=== PATIENT | female | born 1965 | race Caucasian/White ===

== ENCOUNTER 2017-07-20 21:00 | Emergency (ER) | payer OTHER ==
[2017-07-20] MEDS ORDERED: 0.9 % SODIUM CHLORIDE 1,000 ML IV ONE (21:14)
[2017-07-20] MEDS ORDERED: ONDANSETRON HCL/PF 4 MG/ 2ML VIAL IVP ONE ×2 (21:14→23:20)
[2017-07-20] MEDS ORDERED: KETOROLAC TROMETHAMINE 30 MG/1ML VIAL ONE (21:22)
[2017-07-20] MEDS ORDERED: KETOROLAC TROMETHAMINE 30 MG/1ML VIAL IVP ONE (21:22)
[2017-07-20 21:28] LABS: BASOPHILS % 0.3 (0.0-1.5); EOSINOPHILS % 2.5 % (0.0-6.8); MEAN CORPUSCULAR HEMOGLOBIN 29.5 pg (28.0-34.0); MEAN CORPUSCULAR VOLUME 85.1 fl (80.0-100.0); MONOCYTES % 3.1 % (0.0-11.0); NEUTROPHILS # 10.2 # k/uL (1.4-7.7)
[2017-07-20 21:38] LABS: eGFR (African) > 60; eGFR (Non-African) > 60
[2017-07-20] MEDS ORDERED: fentaNYL CITRATE/PF 100 MCG/ 2ML AMP ONE (22:32)
[2017-07-20] MEDS ORDERED: fentaNYL CITRATE/PF 100 MCG/ 2ML AMP IVP ONE ×2 (22:36→23:14)
[2017-07-20] MEDS ORDERED: PIPERACILLIN SODIUM/TAZOBACTAM 3.375 GM in 0.9 % SODIUM CHLORIDE 50 ML IV SCH (23:00)
[2017-07-20] MEDS ORDERED: PIPERACILLIN SODIUM/TAZOBACTAM 3.375 GM VIAL IV ONE (23:01)
[2017-07-20] MEDS ORDERED: 0.9 % SODIUM CHLORIDE 100 ML IV ONE (23:04)
--- NOTE | 2017-07-20 23:11 | ED Physician Documentation ---
Abdominal Pain - HISTORIAN Historian: patient - HPI Stated Complaint: RUQ ABD pain Chief Complaint: Abdominal Pain Onset: hours (3-4) Duration: worse Timing: still present Context: denies: out of country travel, bad food, recent trauma Severity: severe Quality: pain Associated Symptoms: nausea, vomiting. denies: fever, chills, diarrhea Exacerbated by: nothing Relieved by: nothing Further Comments: yes (51 year old female patient presents with RUQ pain and epigastric pain which started 3-4 hours ago accompanied by nausea and vomiting. Patient reports eating pork and salad around 1400; buttery popcorn at 1600. Patient reports vomiting x [address] [employer].) - ROS CONST: no problems GI/: none CVS/RESP: none EYES/ENT: none MS/SKIN/LYMPH: none NEURO/PSYCH: none - SOCIAL HX Smoking History: non-smoker - FAMILY HX Family History: denies: none - PAST HX Past History: none Ischemic Bowel Risk Factors: none Other History: none Surgeries/Procedures: Home Medications: Ambulatory Orders Medication Instructions Recorded NK [NK] 07/20/17 Allergies/Adverse Reactions: Allergies Allergy/AdvReac Type Severity Reaction Status Date / Time acetaminophen [From Vicodin] AdvReac Vomiting Verified 07/20/17 22:20 hydrocodone bitartrate AdvReac Vomiting Verified 07/20/17 22:20 [From Vicodin] - VITAL SIGNS Vital Signs: Vital Signs Temp Pulse Resp BP Pulse Ox 97.9 F 63 22 143/63 100 07/20/17 21:00 07/20/17 21:00 07/20/17 21:00 07/20/17 21:00 07/20/17 21:00 - REVIEWED ASSESSMENTS Nursing Assessment Reviewed: Yes Vitals Reviewed: Yes Progress - Progress Progress: [address] results with patient and . Recommend Surgical consult. Patient prefers [facility]. [address] Simeon. Will start IV fluids, first of zosyn started. Patient medicated for pain with Fentanyl IV ED Results Lab/Radiology - Lab Results Lab Results: Lab Results 07/20/17 07/20/17 21:23 21:23 WBC 12.30 K/ul H K/ul (4.00-12.00) RBC 4.68 M/ul M/ul (3.90-5.20) Hgb 13.8 g/dL g/dL (12.0-16.0) Hct 39.9 % % (34.5-46.5) MCV 85.1 fl fl (80.0-100.0) MCH 29.5 pg pg (28.0-34.0) MCHC 34.7 g/dL g/dL (30.0-36.0) RDW 12.4 % % (11.3-14.3) Plt Count 463 K/mm3 H K/mm3 (130-400) Neut % (Auto) 82.9 % H % (39.0-79.0) Lymph % (Auto) 10.4 % L % (16.0-50.0) [place] % (Auto) 3.1 % % (0.0-11.0) Eos % (Auto) 2.5 % % (0.0-6.8) Baso % (Auto) 0.3 (0.0-1.5) Neut # (Auto) 10.2 # k/uL H # k/uL (1.4-7.7) Lymph # (Auto) 1.3 # k/uL # k/uL (0.6-4.0) [place] # (Auto) 0.4 # k/uL # k/uL (0.0-0.9) Eos # (Auto) 0.3 # k/uL # k/uL (0.0-0.6) Baso # (Auto) 0.0 # k/uL # k/uL (0.0-0.5) Reactive Lymphs % 0.8 % % (0.0-5.0) Reactive Lymphs # 0.1 # k/uL # k/uL (0.0-0.8) Sodium 138 mmol/L mmol/L (136-145) Potassium 4.0 mmol/L mmol/L (3.5-5.1) Chloride 97 mmol/L L mmol/L (98-107) Carbon Dioxide 30 mmol/L mmol/L (22-30) BUN 13 mg/dL mg/dL (7-17) Creatinine 0.90 mg/dL mg/dL (0.52-1.04) Estimated Creat Clear 159 Est GFR ( Amer) > 60 (60 - ) Est GFR (Non-Af Amer) > 60 (60 - ) Glucose 127 mg/dL H mg/dL (74-106) Calcium 9.5 mg/dL mg/dL (8.4-10.2) Total Bilirubin 0.4 mg/dL mg/dL (0.2-1.3) AST 33 U/L U/L (15-46) ALT 41 U/L U/L (13-69) Alkaline Phosphatase 82 U/L U/L (38-126) Total Protein 8.2 g/dL g/dL (6.3-8.2) Albumin 4.4 g/dL g/dL (3.5-5.0) - Radiology Radiology Impressions: Computed tomography of the abdomen and pelvis with contrast History: RUQ PAIN STARTED APPROX 1800, PT SAYS SHE HAS VOMITTED ONCE, LEUKOCYTOSIS Findings: Transverse abdomen and pelvis sections are obtained after 90 mL intravenous omnipaque 350. A gallstone, gallbladder distention, and mild gallbladder wall thickening are observed. Bile ducts are normal in caliber. The liver, pancreas, kidneys, adrenals, spleen, great vessels, and mesenteric structures are normal. Bowel loops exhibit normal caliber and wall thickness including a normal appendix. Moderate colonic stool is present. Pelvic sections reveal unremarkable bowel loops and a decompressed urinary bladder. The uterus and ovaries are normal in size. Impression: Probably early acute cholecystitis. Electronically signed on Jul 20, 2017 10:41:25 PM STOCKHOLDER by: Cricket Forbes - Orders Orders: ED Orders Category Date Time Status Place IV Lock 1T Care 07/20/17 21:[address] ABD & PELVIS W/ CON Stat Exams 07/20/17 Taken CBC/PLATELET/DIFF Stat Lab 07/20/17 21:23 Completed CMP Stat Lab 07/20/17 21:23 Completed UA W/MICRO IF INDICATED Stat Lab 07/20/17 21:40 Ordered URINE HCG Stat Lab 07/20/17 21:59 Ordered 0.9 % Sodium Chloride [Normal Saline] 1,000 ml Med 07/20/17 21:14 Discontinued IV NOW Ketorolac Tromethamine [Toradol] Med 07/20/17 21:22 Discontinued 30 mg .ROUTE .STK-MED ONE Ketorolac Tromethamine [Toradol] Med 07/20/17 21:22 Discontinued 30 mg IVP NOW ONE Ondansetron HCl/Pf [Zofran 4 mg/2 ml] Med 07/20/17 21:14 Discontinued 4 mg IVP NOW ONE Piperacillin Sodium/Tazobactam [Zosyn] 3.375 gm Med 07/20/17 23:00 Ordered 0.9 % Sodium Chloride [Sodium Chloride] 50 ml IV Q6 fentaNYL CITRATE/PF [Duragesic] Med 07/20/17 22:32 Discontinued 100 mcg .ROUTE .STK-MED ONE fentaNYL CITRATE/PF [Duragesic] Med 07/20/17 22:36 Discontinued 50 mcg IVP NOW ONE Abdominal Pain Physical Exam - Physical Exam General Appearance: moderate distress EENT: eye inspection normal, SATISH RESPIRATORY: no resp distress, chest non-tender, breath sounds normal CVS: reg rate & rhythm, heart sounds normal, equal pulses, no murmur, no gallop , PMI nml, no JVD, no friction rub, 24 ABDOMEN: soft, no organomegaly, normal bowel sounds, no abdominal bruit, no distension, tenderness (positive Martinez's ), abnormal bowel sounds (hypoactive) SKIN: normal color, warm/dry, NR, INT, PAL, DR EXTREMITIES: non-tender, normal range of motion, no evidence of injury, no edema , J, 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
[2017-07-20] MEDS ORDERED: DEXTROSE 5 %-0.45 % NACL 1,000 ML IV ONE (23:20)
[2017-07-20] MEDS ORDERED: DEXTROSE 5 % AND 0.9 % NACL 0 ML IV ONE (23:20)
[2017-07-20] MEDS ORDERED: DEXTROSE 5 %-0.45 % NACL 1,000 ML IV SCH (23:45)
[2017-07-21 00:29] VITALS: BP 109/61
[2017-07-21 06:16] LABS: APPEARANCE,URINE CLEAR (CLEAR); COLOR,URINE YELLOW (YELLOW)
[2017-07-21 06:17] LABS: OCCULT BLOOD,URINE TRACE-INTACT (NEGATIVE); PH URINE 5.5 (5.0 - 8.0); URINE HCG NEGATIVE (NEGATIVE)
--- NOTE | 2017-07-21 06:20 | Diagnostic Imaging Report ---
BELTRAN MARKS (MARCELLO) - ER [facility] [address] [facility] [address] [place], [place]. [address] Report Submission Date: Jul 20, 2017 10:41:25 PM BOARDER HAND Patient Study Name: MICHEL MACHADO Date: Jul 20, 2017 10:15:15 PM BOARDER HAND Modality Type: CT\SR Gender: F Description: CT ABD & PELVIS W/ CON : 69 Institution: [facility] Physician: BELTRAN MARKS) - ER Computed tomography of the abdomen and pelvis with contrast History: RUQ PAIN STARTED APPROX 1800, PT SAYS SHE HAS VOMITTED ONCE, LEUKOCYTOSIS Findings: Transverse abdomen and pelvis sections are obtained after 90 mL intravenous omnipaque 350. A gallstone, gallbladder distention, and mild gallbladder wall thickening are observed. Bile ducts are normal in caliber. The liver, pancreas, kidneys, adrenals, spleen, great vessels, and mesenteric structures are normal. Bowel loops exhibit normal caliber and wall thickness including a normal appendix. Moderate colonic stool is present. Pelvic sections reveal unremarkable bowel loops and a decompressed urinary bladder. The uterus and ovaries are normal in size. Impression: Probably early acute cholecystitis. Electronically signed on Jul 20, 2017 10:41:25 PM BOARDER HAND by: Cricket COMBS
== END 2017-07-21 00:19 | disposition home or self-care (01) ==
LOC: ED 21:00
DX: K81.0 Acute cholecystitis (principal)
CPT/HCPCS: 74177; 80053; 81002; 81025; 85025; J1885; J2405; J2543; J3010; J7030; 96361; 96374; 96375; 99283; Q9967; S1016; S5010